=== PATIENT | female | born 1970 | race African-American/Black ===

== ENCOUNTER → 2016-05-11 | Outpatient (CLI) | payer BC ==
[~2016-05-11] MED LIST: ACETAMINOPHEN325 MG PO; LORTAB 7.5-5001 TAB PO; PROMETHAZINE12.5 MG PO; VIBRAMYCIN100 M1 DOB
--- NOTE | ~2016-05-11 | CT3 ---
[facility] A Service of [facility] & [facility] [place] RADIOLOGY TEXT RESULTS PATIENT: JESSY JORGE LOCATION: [facility] : 72 UNIT #: [id number] AGE: [address]: Bony Preston MD SEX: F ORDER DR: [id number] [facility] [address] [place], [place] [address] [id number] O MR#: [id number] Acc #: [id number] NAME: JESSY JORGE : 1970 SEX: F STUDY DATE/TIME: 05/11/2016 12:23 UNIT: [facility] ROOM: STUDY DESCRIPTION: CT Abd and Pelv WWo Cont Attending Physician: Bony Preston M.D. Referring Physician: Bony Preston M.D. Ordering Physician: Bony Preston M.D. Primary Care Physician: Gisel Vallejo M.D. MEDICAL IMAGING REPORT This report is preliminary unless electronic signature is present EXAM CT of the abdomen and pelvis without and with contrast 05/11/2016 HISTORY Blood in the urine for 2 weeks. TECHNIQUE Axial precontrast imaging was obtained through the abdomen and pelvis. This was followed by arterial phase imaging through the kidneys as well as 90-second delayed-phase imaging through the kidneys and 5 minute delayed phase imaging through the abdomen and pelvis. This CT exam was performed with one or more of the following radiation dose reduction techniques: automatic exposure control, adjustment of mA and/or kV according to patient size, and iterative reconstruction. FINDINGS Images through the lung bases are clear. Precontrast imaging does not show any evidence of renal stones. No distal ureteral or bladder stones are seen. There are single renal arteries bilaterally. The kidneys enhance symmetrically and homogeneously. No solid or cystic renal masses are seen. There are single renal collecting systems bilaterally. The urinary bladder appears unremarkable. Liver and gallbladder appear unremarkable as are the spleen, stomach, proximal small bowel, adrenal glands, kidneys and pancreas. There is some atherosclerotic plaque within the infrarenal abdominal aorta. I do not see any free fluid or adenopathy within the abdomen. Uterus appears unremarkable. There is no evidence of mechanical bowel obstruction. STS. [facility] A Service of [facility] & [facility] [place] RADIOLOGY TEXT RESULTS PATIENT: JESSY JORGE LOCATION: [facility] : 72 UNIT #: [id number] AGE: [address]: Bony Preston MD SEX: F ORDER DR: Review of bony windows does not demonstrate any aggressive osseous abnormalities. IMPRESSION No etiology for the patient's hematuria is identified. No stones are seen on precontrast imaging. I do not see any solid or cystic renal masses, and the urinary bladder appears normal. Please see the body of the report for any other additional incidental findings. Dictated by... Carolyn Robertson M.D. THIS IS AN ELECTRONICALLY VERIFIED REPORT Carolyn Robertson M.D. at 05/11/2016 4:49 PM PATRICE/socorro TD: 05/11/2016 15:34 JOB #: [id number] MEDICAL IMAGING REPORT Page 1 of 1 COPY
[2016-05-11 15:05] LABS: POC - CREATININE 1.01 mg/dL (0.44-1.03); POC - GFR >60.0 mL/min (>60)
== END | disposition home or self-care (01) ==
LOC: CCAT 11:30
PROVIDERS: Urology
DX: R31.9 Hematuria, unspecified (principal)
CPT/HCPCS: 74178; 82565; Q9967